=== PATIENT | female | born 1990 | race Caucasian/White ===

== ENCOUNTER 2017-07-03 14:34 | Emergency (ER) | payer BC, OTHER ==
[~2017-07-03] VITALS: Ht 149.9 cm; Wt 102.1 kg
[~2017-07-03 14:34] MED LIST: ACET500C38 PO; BUPR1PAT4 TP; BUSP10TA3 PO; DIVA250T PO; DULO60CA41 PO; FURO-150 PO; LURA40TA PO; NORE0.354 PO; OXYC10TA71 PO; POTA20TA83 PO; PRO40 PO; RANI-362 PO; SOM350 PO; TOPI100T11 PO; ZOLP5TAB2 PO
--- NOTE | 2017-07-03 14:34 | NUR ---
BROUGHT BACK TO BED #2 AND TRIAGED. REPORT GIVEN TO MY
[2017-07-03 14:35] VITALS: BP_SYST 119
--- NOTE | 2017-07-03 14:39 | NUR ---
Placed in room 2. Placed on aquatics manager, blood pressure machine and pulse oximeter. To gown for exam. Side rails up. Report given to Vika.
--- NOTE | 2017-07-03 15:00 | NUR ---
26year old female accompanied by family presents to ED with complaints of BLEEDING AND CLOTS FROM UMBILICUS SINCE LAST NIGHT; reports generalized abd pain; awaiting for MD assess/eval
--- NOTE | 2017-07-03 16:00 | NUR ---
Dr. Ho at bedside for assess/eval
--- NOTE | 2017-07-03 16:13 | NUR ---
Latrell talavera in ED - 07/03/17 at 1630 by SDEDPM pt off unit via wheelchair to Radiology in stable condition
--- NOTE | 2017-07-03 16:13 | NUR ---
blood labs being drawn at bedside; pt jose
[2017-07-03] MEDS ORDERED: MORPHINE 4 MG/ML INJ. SYRINGE IVP ONE (16:15)
--- NOTE | 2017-07-03 16:27 | NUR ---
pt off unit via wheelchair to Radiology in stable condition
--- NOTE | 2017-07-03 16:33 | NUR ---
pt returned to unit via wheelchair in stable condition
[2017-07-03] MEDS ORDERED: DIPHENHYDRAMINE INJ 50 MG/ML VIAL IVP ONE (16:45)
--- NOTE | 2017-07-03 16:45 | NUR ---
PIV STARTED; NO BLOOD RETURN NOTED; Morphine and Benadryl scanned; however, not given; attempted PIV started x 3
[2017-07-03 16:59] LABS: BASOPHILS # (AUTO) 0.1 K/uL (0.0-0.2); BASOPHILS % (AUTO) 0.6 % (0.0-2.0); EOSINOPHILS # (AUTO) 0.1 K/uL (0.0-0.4); EOSINOPHILS % (AUTO) 1.3 % (0.0-4.0); HEMATOCRIT 42.9 % (36-48); HEMOGLOBIN 14.7 g/dL (12.0-16.0); LYMPHOCYTES # (AUTO) 3.2 K/uL (1.0-5.5); MEAN CORPUSCULAR HEMOGLOBIN 28 pg (27-31); MEAN CORPUSCULAR HGB CONC 34 % (32-36); MEAN CORPUSCULAR VOLUME 80 fL (79.0-98.0); MONOCYTES # (AUTO) 0.7 K/uL (0.0-1.0); MONOCYTES % (AUTO) 7.2 % (1.7-9.3); NEUTROPHILS # (AUTO) 5.1 K/uL (1.8-7.7); NEUTROPHILS % (AUTO) 55.9 % (40.0-70.0); PLATELET COUNT (AUTO) 249 K/uL (130-430); RED BLOOD CELL COUNT(AUTO) 5.35 MIL/uL (4.2-6.2); RED CELL DISTRIBUTION WIDTH 12.3 % (9.0-15.0); WHITE BLOOD COUNT (AUTO) 9.2 K/uL (4.8-10.8)
[2017-07-03 17:01] LABS: CREATININE 0.89 mg/dL (0.55-1.30); POTASSIUM 3.9 mmol/L (3.5-5.1)
[2017-07-03 17:05] LABS: ALBUMIN 3.6 g/dL (3.4-4.8); TOTAL BILIRUBIN 0.3 mg/dL (0.0-1.0)
--- NOTE | 2017-07-03 17:33 | NUR ---
Attempted IV x5 without success. Pt is very hard stick. ER notified.
--- NOTE | 2017-07-03 17:35 | NUR ---
PIV attempted x 3 by WALTER Hardy Charge; unable to obtain PIV access; made aware; will admin medication via IM injections
[2017-07-03] MEDS ORDERED: MORPHINE 4 MG/ML INJ. SYRINGE IM ONE (17:45)
[2017-07-03] MEDS ORDERED: DIPHENHYDRAMINE INJ 50 MG/ML VIAL IM ONE (17:45)
--- NOTE | 2017-07-03 17:57 | NUR ---
Morphine and Benadryl IM given as ordered; pt reports 9/10 abd pain; will reassess and continue to monitor; family at bedside
[2017-07-03 18:35] VITALS: BP_SYST 121
--- NOTE | 2017-07-03 18:40 | NUR ---
Patient given written and verbal discharge instructions and verbalizes understanding. ER MD discussed with patient the results and treatment provided. Patient in stable condition. ID arm band removed. Rx of Zofran given. Patient educated on pain management and to follow up with PMD. Pain Scale 0/10. Opportunity for questions provided and answered. Medication side effect fact sheet provided. Pt refused to take discharge packet. Asked for it to be given to her father who is an employee at [employer].
== END 2017-07-03 18:40 | disposition home or self-care (01) ==
LOC: SED 14:34
DX: R10.33 Periumbilical pain (principal); J45.909 Unspecified asthma, uncomplicated; K21.9 Gastro-esophageal reflux disease without esophagitis; I10 Essential (primary) hypertension; G43.909 Migraine, unspecified, not intractable, without status migrainosus; Z90.49 Acquired absence of other specified parts of digestive tract; Z88.2 Allergy status to sulfonamides; Z88.0 Allergy status to penicillin; Z88.1 Allergy status to other antibiotic agents; Z79.899 Other long term (current) drug therapy
CPT/HCPCS: 36415; 74176; 80053; 81025; 83690; 85025; 96372; 96374; 99285; J1200; J2270